=== PATIENT | female | born 1965 | race Caucasian/White ===

== ENCOUNTER → 2019-08-25 | Outpatient (CLI) | payer MEDICARE, OTHER ==
[2015-07-15 20:23] VITALS: BP 138/72
== END | disposition home or self-care (01) ==
LOC: LAB 12:56
PROVIDERS: ATTEND Internal Medicine Gastroenterology
DX: Z11.59 Encounter for screening for other viral diseases (principal)
CPT/HCPCS: U0003-CS

== ENCOUNTER → 2019-09-06 | Day surgery (SDC) | payer MEDICARE, OTHER ==
[~2019-09-06] MED LIST: IBUP-1007 PO; IV RINGERS,LACTATED 1000ML 1,000 ML IV SCH; LIDOCAINE 1% PF 2 ML VIAL. ID PRN; MULT-245 PO; ONDANSETRON PF 4 MG/2 ML VIAL. IV PRN; PROCHLORPERAZINE 10 MG/2 ML VIAL. IV PRN; PROPOFOL 10 MG/ML (20ML) VIAL. IV ONE; SOY155CA PO; fentaNYL PF VIAL 100 MCG/2 ML VIAL IV PRN
[2019-09-06 10:27] VITALS: BP 100/76
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
== END | disposition home or self-care (01) ==
LOC: ENDOS 07:46
PROVIDERS: ATTEND Internal Medicine Gastroenterology
DX: Z12.11 Encounter for screening for malignant neoplasm of colon (principal); K64.0 First degree hemorrhoids; K50.90 Crohn's disease, unspecified, without complications; M79.7 Fibromyalgia; K74.60 Unspecified cirrhosis of liver; Z79.899 Other long term (current) drug therapy; Z98.51 Tubal ligation status; Z90.710 Acquired absence of both cervix and uterus; Z98.890 Other specified postprocedural states
CPT/HCPCS: G0121; J2704; 45378; G0105

== ENCOUNTER → 2019-09-20 | Outpatient (CLI) | payer MEDICARE, OTHER ==
[2019-09-06 10:27] VITALS: BP 100/76
[~2019-09-20] MED LIST changes: -IV RINGERS,LACTATED 1000ML 1,000 ML IV SCH; -LIDOCAINE 1% PF 2 ML VIAL. ID PRN; -ONDANSETRON PF 4 MG/2 ML VIAL. IV PRN; -PROCHLORPERAZINE 10 MG/2 ML VIAL. IV PRN; -PROPOFOL 10 MG/ML (20ML) VIAL. IV ONE; -fentaNYL PF VIAL 100 MCG/2 ML VIAL IV PRN
--- NOTE | 2019-09-22 18:11 | SLEEP ---
DATE OF STUDY: 09/20/2019 POLYSOMNOGRAM OBJECTIVE: The patient is a 54-year-old female with excessive somnolence, sleep paralysis, trouble staying asleep, awakening short of air. Height 5 feet 6 inches, weight 170 pounds, body mass index 31. [place] sleep score of 15. INTERPRETATION: Sleep architecture is characterized by a poor sleep efficiency of 54% across 6.6 hours of recording time. There is absence of REM sleep. Sleep onset latency is 6 minutes. Respiratory monitoring shows a total of 91 events for an apnea-hypopnea index of 25.4 events per hour of sleep. Minimum oxygen saturation is 88%. CPAP titration is attempted. At a setting of BiPAP, 23/15, the apnea/hypopnea index is 2.8 events per hour of sleep. Periodic limb movements of sleep are not observed. There are no cardiac arrhythmias. IMPRESSION: Abnormal polysomnogram showing obstructive sleep apnea-hypopnea treatable on BiPAP setting of 23/15 using a Respironics DreamWear full face mask, small size. RECOMMENDATIONS: 1. The patient should be established on the setting of BiPAP. 2. She should pursue weight loss and avoid sedatives and alcohol. Thank you for letting us help with the patient's care. BUSHRA JULIEN MD DR: HENOK/viviana JOB#: [id number] / [id number] KATE Chaudhari APRN
== END | disposition home or self-care (01) ==
LOC: SLPLAB 18:45
PROVIDERS: ATTEND Nurse Practitioner Family
DX: G47.33 Obstructive sleep apnea (adult) (pediatric) (principal); R09.02 Hypoxemia
CPT/HCPCS: 95810

== ENCOUNTER → 2021-01-12 | Outpatient (CLI) | payer OTHER ==
[2019-09-06 10:27] VITALS: BP 100/76
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
== END ==
LOC: KCIC 12:25
PROVIDERS: ATTEND Nurse Practitioner Family
DX: M17.11 Unilateral primary osteoarthritis, right knee (principal)
CPT/HCPCS: 73562